=== PATIENT | female | born 1985 | race Caucasian/White ===

== ENCOUNTER 2020-03-08 06:22 | Day surgery (SDC) | payer OTHER ==
[~2020-03-08] VITALS: Ht 167.6 cm; Wt 54.5 kg
[~2020-03-08 06:22] MED LIST: ABAT250V; ACYC200 PO; ACYC800; Adalat/Procardi20 MG; CYCL10 PO; IBUP800 PO; ONDA4 PO; OXYACE5T PO; Omeprazole20 M1; Verotin-Gr Cap1 EACH; Verotin-Gr Cap1 EACH PO; [UNRECOGNIZED DRUG - OTHER]
[2020-03-08] MEDS ORDERED: TOPROL XL25 MG PO (07:00)
== END 2020-03-08 23:23 | disposition home or self-care (01) ==
LOC: MHTC 06:22
DX: R55 Syncope and collapse (principal); J45.909 Unspecified asthma, uncomplicated; Z88.0 Allergy status to penicillin; Z88.8 Allergy status to other drugs, medicaments and biological substances; Z91.040 Latex allergy status
CPT/HCPCS: 33285; C1764

== ENCOUNTER 2021-09-29 06:19 | Day surgery (SDC) | payer OTHER ==
[2021-09-27 13:49] LABS: BASOPHILS ABSOLUTE AUTO 0.07 K/mm3 (0.00-0.23); BASOPHILS PERCENT AUTO 1 % (0-2); EOSINOPHILS ABSOLUTE AUTO 0.07 K/mm3 (0.00-0.68); EOSINOPHILS PERCENT AUTO 1 % (0-6); Hematocrit 37.1 % (33.0-51.0); Hemoglobin 11.8 g/dL (11.5-16.0); IMMATURE GRAN ABSOLUTE AUTO 0.01 K/mm3 (0.00-0.10); IMMATURE GRAN PERCENT AUTO 0 % (0-1); LYMPHOCYTES PERCENT AUTO 32 % (21-46); MONOCYTES ABSOLUTE AUTO 0.38 K/mm3 (0.16-1.47); MONOCYTES PERCENT AUTO 8 % (4-13); Mean Corpuscular HGB 27.2 pg (26.0-34.0); Mean Corpuscular HGB Conc 31.8 g/dL (31.5-36.5); Mean Corpuscular Volume 86 fL (80-100); Mean Platelet Volume 10.2 fL (9.1-12.4); NEUTROPHILS ABSOLUTE AUTO 2.94 K/mm3 (1.96-9.15); NEUTROPHILS PERCENT AUTO 58 % (41-73); Platelet Count 295 K/mm3 (150-400); RDW Coefficient Variation 13.4 % (11.7-14.2); RDW Standard Deviation 41.9 fL (35.1-46.3); Red Blood Cell Count 4.34 M/mm3 (3.80-5.20); White Blood Cell Count 5.07 K/mm3 (4.00-11.30)
[2021-09-27 14:36] LABS: Bun/Creatinine Ratio 19.4 (12.0-20.0); Calcium, Blood 9.1 mg/dL (8.5-10.1); Creatinine, Blood 0.83 mg/dL (0.40-1.00); Potassium, Blood 4.2 mmol/L (3.5-5.5)
[~2021-09-29] VITALS: Ht 167.6 cm; Wt 57.1 kg
[~2021-09-29 06:19] MED LIST changes: +MIDO5 PO; +PROP10 PO; +TOPROL XL25 MG PO
--- NOTE | 2021-09-29 07:02 | NUR ---
Ambulatory in Day Surgery History, Chart, Medications and Allergies reviewed before start of procedure. Lungs clear T/O to Auscultation. Pre-Op teaching done. Pt verbalizes understanding.
--- NOTE | 2021-09-29 12:40 | NUR ---
REPORT RECEIVED FROM MANUELA SOCIAL MEDIA MANAGER PRIOR TO ARRIVAL TO FLOOR. PT ARRIVED TO RM [id number]. PT AWAKENS TO VERBAL STIMULI AND ABLE TO ANSWER QUESTIONS. REPORTS ABD PAIN 5/10 CURRENTLY. ON RA. NO S/S OF DISTRESS, SOB. PT ORIENTED TO , CALL LIGHT. LAP INCISIONS X 4 INTACT, PRODUCT MGR, NO SIGNS OF BLEEDING OR INFECTION. HEATING PAD PROVIDED FOR PT. CALLED SPOUSE PER HER REQUEST TO LET HIM KNOW WHICH ROOM SHE IS IN.
--- NOTE | 2021-09-29 16:09 | NUR ---
PT ATTEMPTED TO URINATE BUT WAS UNSUCCESSFUL. PT REPORTED DIZZINESS WITH AMBULATION AND DEVELOPED NAUSEA. ZOFRAN GIVEN PER JUN. PT REPORTS PAIN TOLERABLE AT THIS TIME.
--- NOTE | 2021-09-29 18:47 | NUR ---
SHIFT SUMMARY: PT A/O X 4, IND IN ROOM. PT CONTINUES TO HAVE DIFFICULTY WITH PAIN MANAGEMENT AND CONTINUES TO NEED IV DILAUDID TO MANAGE PAIN. PT HAS BEEN UP TO BATHROOM AND URINATED. SHE IS TOLERATING FLUIDS BUT NOT FOOD AT THIS TIME. NAUSEA MANAGED WITH ZOFRAN. MINIMAL BLEEDING TO JUNE PAD, JUST A COUPLE OF SPOTS TODAY. PT WILL BE STAYING THE NIGHT. CALL PLACED TO SURGEON AND LEFT MESSAGE TO GIVE UPDATE. AWAITING RETURN CALL.
--- NOTE | 2021-09-30 05:44 | NUR ---
CONSULTING SOLUTION DIRECTOR SUMMARY PT AAOX4 AND PLEASANT. INDEPENDENT IN ROOM. ABD LAP SITES X4 C/D/I WITH DERMABOND. PT STILL HAVING ABD PAIN AND HAS REQUIRED IV DILAUDID ON OCCASION TONIGHT. SPOKE WITH DR YAÑEZ AT START OF SHIFT AND RECIEVED ORDER FOR IV TORADOL BUT PT STATED THAT IT DIDN'T SEEM TO HELP MUCH. AFTER MEDICATING WITH DILAUDID PT HAS BEEN ABLE TO SLEEP. TOLERATING SOME PO INTAKE. PT STATES NO ISSUE WITH FULL LIQUIDS BUT SAYS THAT SOLID FOODS HAVE BEEN DIFFICULT TO SWALLOW. WILL CONTINUE TO MONITOR.
--- NOTE | 2021-09-30 09:15 | NUR ---
09/30/21 0915 Myesha Castillo VERIFICATIONS: EDIT CHART.
[2021-09-30 10:10] LABS: BASOPHILS ABSOLUTE AUTO 0.05 K/mm3 (0.00-0.23); BASOPHILS PERCENT AUTO 1 % (0-2); EOSINOPHILS ABSOLUTE AUTO 0.06 K/mm3 (0.00-0.68); EOSINOPHILS PERCENT AUTO 1 % (0-6); Hematocrit 34.1 % (33.0-51.0); IMMATURE GRAN ABSOLUTE AUTO 0.04 K/mm3 (0.00-0.10); IMMATURE GRAN PERCENT AUTO 0 % (0-1); LYMPHOCYTES ABSOLUTE AUTO 2.02 K/mm3 (0.84-5.20); LYMPHOCYTES PERCENT AUTO 21 % (21-46); MONOCYTES ABSOLUTE AUTO 0.79 K/mm3 (0.16-1.47); MONOCYTES PERCENT AUTO 8 % (4-13); Mean Corpuscular HGB 27.5 pg (26.0-34.0); Mean Corpuscular HGB Conc 32.3 g/dL (31.5-36.5); Mean Corpuscular Volume 85 fL (80-100); Mean Platelet Volume 10.6 fL (9.1-12.4); NEUTROPHILS ABSOLUTE AUTO 6.91 K/mm3 (1.96-9.15); NEUTROPHILS PERCENT AUTO 70 % (41-73); Platelet Count 256 K/mm3 (150-400); RDW Coefficient Variation 13.7 % (11.7-14.2); RDW Standard Deviation 42.6 fL (35.1-46.3); White Blood Cell Count 9.87 K/mm3 (4.00-11.30)
[2021-09-30 11:53] LABS: Albumin, Blood 3.3 g/dL (3.4-5.0); Albumin/Globulin Ratio 1.2 (0.8-1.8); Bilirubin, Total 0.6 mg/dL (0.1-1.0); Bun/Creatinine Ratio 15.2 (12.0-20.0); Calcium, Blood 8.6 mg/dL (8.5-10.1); Creatinine, Blood 0.86 mg/dL (0.40-1.00); Globulin, Blood 2.8 g/dL (2.2-4.0); Potassium, Blood 3.8 mmol/L (3.5-5.5); Total Protein, Blood 6.1 g/dL (6.4-8.2)
[2021-09-30] MEDS ORDERED: ACET325 PO (14:53)
[2021-09-30] MEDS ORDERED: IBUP200 PO (14:53)
--- NOTE | 2021-09-30 15:21 | NUR ---
DISCHARGE SUMMARY PATIENT ALERT AND ORIENTED THROUGHOUT SHIFT. TOLERATING REGULAR DIET AND FLUIDS. VOIDING WELL. ABD PAIN SEVERE AT BEGINNING OF SHIFT. GRADUALLY IMPROVED WITH CONSISTENT MEDICATION PER EMAR. ABD SOFT AND TENDER. LAP SITES PARCEL POST WEIGHER AND C/D/I. DISCHARGE ORDERS IN CHART. DISCHARGE EDUCATION GIVEN ON ACTIVITY, WOUND CARE, NEW MEDS, AND FOLLOW UP APPTS. IV'S DC'D WNL. PATIENT LEFT UNIT AT 1520 WITH SIGNIFICANT OTHER FOR HOME.
== END 2021-09-30 15:17 | disposition home or self-care (01) ==
LOC: ORSCMMR 06:19 → ORD 07:30 → SURS 12:32 → ORSCMMR 09-30 15:17 → ORD 10-27 07:30
PROVIDERS: Obstetrics & Gynecology
PROC: 8E0W4CZ Robotic Assisted Procedure of Trunk Region, Percutaneous Endoscopic Approach (ICD-10-PCS; principal; 2021-09-29 07:30)
PROC: 0UT74ZZ Resection of Bilateral Fallopian Tubes, Percutaneous Endoscopic Approach (ICD-10-PCS; principal; 2021-09-29 07:30)
PROC: 0UT94ZZ Resection of Uterus, Percutaneous Endoscopic Approach (ICD-10-PCS; principal; 2021-09-29 07:30)
DX: N92.0 Excessive and frequent menstruation with regular cycle (principal); N85.2 Hypertrophy of uterus; N94.10 Unspecified dyspareunia; N94.6 Dysmenorrhea, unspecified; J45.909 Unspecified asthma, uncomplicated; Z79.899 Other long term (current) drug therapy
CPT/HCPCS: 58571; S2900; 36415; 80048; 80053; 84703; 85025; 86850; 86900; 86901; 88307; 93005; 93010; A9270; J1100; J1170; J1580; J1885; J2001; J2250; J2405; J2704; J3010; J7120

== ENCOUNTER 2024-02-29 06:11 | Day surgery (SDC) | payer OTHER ==
[~2024-02-29] VITALS: Ht 167.6 cm; Wt 59.0 kg
[~2024-02-29 06:11] MED LIST changes: +ACET325 PO; +IBUP200 PO
[2024-02-29] MEDS ORDERED: Lidocaine 2%-Epineph 1:100000 20 ML MDV ONE (06:39)
[2024-02-29 06:42] VITALS: BP 109/56
[2024-02-29 06:46] VITALS: BP 109/56
[2024-02-29 08:30] VITALS: BP 108/81
--- NOTE | 2024-02-29 08:42 | NUR ---
PATIENT TOLERATED PROCEDURE WELL. NO SEDATION USED, LOCAL LIDOCAINE ONLY. VERBAL AND WRITTEN DISCHARGE INSTRUCTIONS GIVEN TO PATIENT WITH CLEAR UNDERSTANDING. ICE PACK GIVEN TO PT. NITESHG C/D/I. PT DC'D HOME IN STABLE CONDITION AT 0832
== END 2024-02-29 08:56 | disposition home or self-care (01) ==
LOC: MHTC 06:11
DX: Z45.09 Encounter for adjustment and management of other cardiac device (principal); R00.2 Palpitations; R55 Syncope and collapse; Z88.0 Allergy status to penicillin; Z88.5 Allergy status to narcotic agent; Z91.040 Latex allergy status
CPT/HCPCS: 33285; 33286; C1764